=== PATIENT | male | born 1975 | race Caucasian/White ===

== ENCOUNTER 2018-04-29 14:23 | Emergency (ER) | payer OTHER ==
[~2018-04-29] VITALS: Ht 170.2 cm; Wt 77.1 kg
[~2018-04-29 14:23] MED LIST: KETO15TC TP
[2018-04-29] MEDS ORDERED: Baclofen10 MG PO (15:20)
== END 2018-04-29 15:34 | disposition home or self-care (01) ==
LOC: ER 14:23
DX: M54.5 Low back pain (principal); F20.9 Schizophrenia, unspecified; F32.9 Major depressive disorder, single episode, unspecified; F17.200 Nicotine dependence, unspecified, uncomplicated
CPT/HCPCS: 96372; 99283; J1885

== ENCOUNTER 2018-10-29 11:04 | Emergency (ER) | payer OTHER ==
[~2018-10-29] VITALS: Ht 172.7 cm; Wt 81.7 kg
[~2018-10-29 11:04] MED LIST changes: +Baclofen10 MG PO
[2018-10-29] MEDS ORDERED: RISP2 PO (11:11)
[2018-10-29] MEDS ORDERED: ALBU90OI INH (11:52)
[2018-10-29] MEDS ORDERED: Prednisone20 MG PO (11:52)
== END 2018-10-29 12:20 | disposition home or self-care (01) ==
LOC: ER 11:04
DX: J40 Bronchitis, not specified as acute or chronic (principal); F20.9 Schizophrenia, unspecified; F32.9 Major depressive disorder, single episode, unspecified; F17.210 Nicotine dependence, cigarettes, uncomplicated
CPT/HCPCS: 71046; 99283-25